=== PATIENT | male | born 1990 | race Caucasian/White ===

== ENCOUNTER 2018-01-10 18:10 | Inpatient (IN) | payer OTHER ==
[~2018-01-10] VITALS: Ht 175.3 cm; Wt 65.9 kg
[~2018-01-10 18:10] MED LIST: BUSPIRONE HCL10 M1 PO; FISH OIL 1,0001 EACH PO; FISH OIL 1,2001 EAC2 PO; GABAPENTIN300 M2 PO; GINKGO BILOBA60 M1 PO; KEPPRA500 M1 PO; LEVETIRACETAM500 M2 PO; OMEPRAZOLE D/R20 MG PO; PAROXETINE HCL40 M1 PO; VITAMIN D1000 IU PO; ZOFRAN ODT4 M1 SL; ZOLOFT100 M1 PO
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
--- NOTE | 2018-01-10 19:10 | RADIOLOGY REPORT ---
EXAMINATION: XR PORTABLE CHEST CLINICAL INFORMATION: Intubation COMPARISON: None TECHNIQUE: Portable frontal view of the chest was obtained. FINDINGS: ET tube is present in good position 5.3 cm above the chrystal. Heart size is normal. The lungs are clear. IMPRESSION: ET tube 5.3 cm above the chrystal.
--- NOTE | 2018-01-10 19:41 | CT SCAN REPORT ---
EXAMINATION: CT HEAD AND CERVICAL SPINE. CLINICAL INFORMATION: Head injury. COMPARISON: CT head and cervical spine 09/03/2013. TECHNIQUE: Mend Worker images were obtained. CT acquisition of the head and cervical spine was performed without contrast. Data was reformatted into multiplanar images at the acquisition workstation. DLP: 930.46 mGy-cm. FINDINGS: Head: There is no acute intracranial hemorrhage or abnormal extra-axial collection. No intracranial mass effect or midline shift. Lateral and third ventricles are normal. No hydrocephalus. Carmona-white matter differentiation is preserved and there is no evidence acute territorial infarct. The calvarium and skull base are intact. Mastoid air cells and middle ear cavities are well aerated. Cervical spine: Alignment is normal. Vertebral heights are preserved. No acute fracture. Intervertebral disc spaces are maintained at all levels. Grossly no evidence of canal compromise and no bony neuroforaminal encroachment. Soft tissues of the neck including the thyroid gland are unremarkable. Visualized lung apices are clear. IMPRESSION: Unremarkable examination. No acute intracranial hemorrhage. No acute cervical spine fracture.
[2018-01-10 20:23] LABS: ABSOLUTE BASOPHIL COUNT 0 /CUMM (0.0-0.2); ABSOLUTE EOSINOPHIL COUNT 0 /CUMM (0.0-0.7); ABSOLUTE GRANULOCYTE CT 13.7 /CUMM (1.4-6.5); ABSOLUTE LYMPH COUNT 1.6 /CUMM (1.2-3.4); BASOPHIL % 0.2 % (0.0-2.0); EOSINOPHIL % 0.2 % (0-5); MEAN CORPUSCULAR HGB 30.2 PG (27.0-31.0); MEAN CORPUSCULAR HGB CONC 33.6 G/DL (33.0-37.0); MEAN CORPUSCULAR VOLUME 89.9 FL (80.0-94.0); MEAN PLATELET VOLUME 9.9 FL (7.4-10.4); PLATELET COUNT 194 /CUMM (130-400); RBC DISTRIBUTION WIDTH 13.1 % (11.5-14.5); RED BLOOD CELL CT 4.68 /CUMM (4.70-6.10); WHITE BLOOD CELL COUNT 16.4 /CUMM (4.8-10.8)
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
[2018-01-10 20:50] LABS: GRANULOCYTE % 83.4 % (42.2-75.2)
[2018-01-10] MEDS ORDERED: OMEPRAZOLE20 M2 PO (20:52)
[2018-01-10] MEDS ORDERED: PAXIL40 M1 PO (20:52)
[2018-01-10] MEDS ORDERED: FISH OIL 1,2001 EAC2 PO (20:52)
[2018-01-10 22:04] VITALS: BP 114/80
--- NOTE | 2018-01-10 22:29 | RADIOLOGY REPORT ---
EXAMINATION: CHEST 1 VIEW CLINICAL INFORMATION: Seizure. Intubated. COMPARISON: Same day chest radiograph. TECHNIQUE: An AP view of the chest is provided. FINDINGS: The cardiac silhouette is not enlarged. An endotracheal tube is in place. The tip is approximately 3.5 cm above the chrystal. An enteric tube is in place. The tip terminates within the upper abdomen, likely within the stomach. The mediastinal and hilar contours are unremarkable. There are neither pleural effusions nor pneumothoraces. There are no consolidations. The osseous structures are unremarkable. IMPRESSION: Endotracheal tube and enteric tube in place. No acute airspace disease.
--- NOTE | 2018-01-10 22:51 | Admission Certification ---
Admission Certification Certification Statement - As attending physician, I certify that at the time of - admission, based on clinical presentation, severity of - symptoms, need for further diagnostic testing and - therapeutic interventions, and risk of adverse outcomes - without in-hospital treatment, in my clinical assessment, - this patient requires an acute hospital stay for a minimum - of two nights or longer. I have also considered psychsocial - factors such as support system, advanced age, financial - issues, cognitive issues, and failed out-patient treatments, - past re-admission history, safety of patient, and lack of - compliance as applicable. Specific rationale supporting this admission is: Hospitalization is required for management of his seizure disorder.
[2018-01-11] VITALS: BP 118/80
[2018-01-11 05:36] LABS: ABSOLUTE BASOPHIL COUNT 0 /CUMM (0.0-0.2); ABSOLUTE EOSINOPHIL COUNT 0 /CUMM (0.0-0.7); ABSOLUTE GRANULOCYTE CT 10.3 /CUMM (1.4-6.5); ABSOLUTE LYMPH COUNT 1.4 /CUMM (1.2-3.4); ABSOLUTE MONOCYTE COUNT 1.4 /CUMM (0.10-0.60); BASOPHIL % 0.2 % (0.0-2.0); EOSINOPHIL % 0.2 % (0-5); GRANULOCYTE % 78.4 % (42.2-75.2); HEMATOCRIT 40.5 % (42-52); MEAN CORPUSCULAR HGB CONC 33.4 G/DL (33.0-37.0); MEAN CORPUSCULAR VOLUME 89.7 FL (80.0-94.0); MEAN PLATELET VOLUME 9.6 FL (7.4-10.4); PLATELET COUNT 165 /CUMM (130-400); RBC DISTRIBUTION WIDTH 13.2 % (11.5-14.5); RED BLOOD CELL CT 4.52 /CUMM (4.70-6.10); WHITE BLOOD CELL COUNT 13.1 /CUMM (4.8-10.8)
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
[2018-01-11 08:00] VITALS: BP 117/60
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
[2018-01-11 14:18] VITALS: BP 117/60
[2018-01-11] MEDS ORDERED: LORAZEPAM IV (14:27)
[2018-01-11] MEDS ORDERED: LEVETIRACE1000 MG/10 IV (14:27)
[2018-01-11] MEDS ORDERED: PANTOPRAZOLE SO40 M2 IV (14:27)
[2018-01-11] MEDS ORDERED: ANESTHESIA10 MG/1 M1 IV (14:27)
[2018-01-11] MEDS ORDERED: MIDAZOLAM IV (14:27)
--- NOTE | 2018-01-11 14:27 | Patient Discharge Instructions ---
Discharge Instructions General Discharge Information You were seen/treated for: Intractable seizure Diet Continue normal diet: No Activity Full Activity/No Limits: No Acute Coronary Syndrome Inclusion Criteria At DC or during hospital stay patient has or had the following: ACS DIAGNOSIS No Discharge Core Measures Meds if any: Prescribed or Continued at Discharge Meds if any: NOT Prescribed or Continued at Discharge Congestive Heart Failure Inclusion Criteria At DC or during hospital stay patient has or had the following: CHF DIAGNOSIS No Discharge Core Measures Meds if any: Prescribed or Continued at Discharge Meds if any: NOT Prescribed or Continued at Discharge Cerebrovascular accident Inclusion Criteria At DC or during hospital stay patient has or had the following: CVA/TIA Diagnosis No Discharge Core Measures Meds if any: Prescribed or Continued at Discharge Meds if any: NOT Prescribed or Continued at Discharge Venous thromboembolism Inclusion Criteria VTE Diagnosis No VTE Type NONE VTE Confirmed by (Test) NONE Discharge Core Measures - Per Current guidelines, there needs to be overlap - treatment for the first 5 days of Warfarin therapy. - If discharged on Warfarin prior to 5 days of - overlap therapy, the patient will need to be - assessed for post discharge needs including - *Post discharge parental anticoagulation - *Warfarin and/or parental anticoagulation education - *Follow up date to check INR post discharge At least 5 days overlap therapy as Inpatient No Meds if any: Prescribed or Continued at Discharge Note: Overlap Therapy is Warfarin and Anticoagulant Meds if any: NOT Prescribed or Continued at Discharge
[2018-01-11 16:00] VITALS: BP 120/70
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
[2018-01-11 23:00] VITALS: BP 117/60
== END 2018-01-11 23:00 | disposition short-term general hospital (02) | DRG 53 ==
LOC: ERH 18:10 → CRI 20:20 → ERHI 20:20 → ENRESERV 20:47 → ENTRNSPT 21:15 → EDTRNSPTSTS 21:18 → CMPTRNSPT 21:50 → CRI 21:54
PROVIDERS: Emergency Medicine; Internal Medicine
PROC: 0BH17EZ Insertion of Endotracheal Airway into Trachea, Via Natural or Artificial Opening (ICD-10-PCS; principal; 2018-01-10)
PROC: 5A1945Z Respiratory Ventilation, 24-96 Consecutive Hours (ICD-10-PCS; 2018-01-10)
PROC: 0HQ3XZZ Repair Left Ear Skin, External Approach (ICD-10-PCS; 2018-01-10)
DX: G40.919 Epilepsy, unspecified, intractable, without status epilepticus (principal); V49.88XA Car occupant (driver) (passenger) injured in other specified transport accidents, initial encounter; S01.112A Laceration without foreign body of left eyelid and periocular area, initial encounter; R40.2422 Glasgow coma scale score 9-12, at arrival to emergency department; F41.9 Anxiety disorder, unspecified; F32.9 Major depressive disorder, single episode, unspecified; S09.8XXA Other specified injuries of head, initial encounter; E87.6 Hypokalemia; D72.829 Elevated white blood cell count, unspecified; R00.1 Bradycardia, unspecified; E87.2 Acidosis; F12.90 Cannabis use, unspecified, uncomplicated
CPT/HCPCS: CCU; 36415; 71045; 80307; 81001; 82436; 87086; 93005; 93010; 94799; G0480; J1650; J1953; J2060; J2250; J2405; J3360; J7042; J7060